=== PATIENT | male | born 1995 ===

== ENCOUNTER 2021-01-13 23:04 | Emergency (ER) | payer BC, SELFPAY ==
--- OUTSIDE RECORDS SUMMARY | 2021-01-13 23:07 | XMS REPORT | Continuity of Care Document ---
:1995 Author Organization [facility] t Address [address] [place] [address] Care Team Providers Name Role Phone Pcp, Patient Does Not Have A Primary Care Physician +[id number] Warren THOMASP Attending Clinician Doctor Unassigned, Name Attending Clinician Unavailable Payers Payer Name Policy Type Policy Number Effective Date Expiration Date S ource Problems Condition Condition Condition Status Onset Resolution Last Treating Co mments Source Name Details Category Date Date Treatment Clinician Date No known No known Disease Unive rs active active ity of problems problems [facility] Allergies, Adverse Reactions, Alerts This patient has no known allergies or adverse reactions. Social History Social Habit Start Date Stop Date Quantity Comments Source Tobacco use and 2021-01-12 2021-01-12 Never used Universit y of exposure 00:00:00 00:00:00 [facility] Alcohol intake 2021-01-12 2021-01-12 Lifetime University of 00:00:00 00:00:00 non-drinker [facility] (finding) Branch Sex Assigned At [birth year] Universit [facility] of 00:00:00 00:00:00 [facility] Smoking Status Start Date Stop Date Source Unknown [facility] [place] Never smoker [facility] Medications Ordered Filled Start Stop Current Ordering Indication Dosage Frequency Signature Comments Components Source Medication Medication Date Date Medication? Clinician (SIG) Name Name ibuprofen 2020- Yes [id number] 600mg Take 1 Univers 600 mg 01-12 tablet by ity of tablet 00:00: 04:59 mouth 3 [place] 00 :00 (three) Medical times [place] daily with meals for 10 days. Immunizations Ordered Filled Immunization Date Status Comments Sour e Immunization Name Name SARS-COV-2 COVID-19 2020-06-17 Completed Unive rsity of MODERNA VACCINE 00:00:00 [facility] SARS-COV-2 COVID-19 2020-06-17 Completed Unive rsity of MODERNA VACCINE 00:00:00 [facility] SARS-COV-2 COVID-19 2020-05-18 Completed Unive rsity of MODERNA VACCINE 00:00:00 [facility] SARS-COV-2 COVID-19 2020-05-18 Completed Unive rsity of MODERNA VACCINE 00:00:00 [facility] Vital Signs Vital Name Observation Time Observation Value Comments Source Systolic blood 2021-01-12 21:37:00 129 mm[Hg] Univer sity of pressure [facility] Diastolic blood 2021-01-12 21:37:00 71 mm[Hg] Unive rsity of pressure [facility] Heart rate 2021-01-12 21:37:00 65 /min General acute hospital Body temperature 2021-01-12 21:37:00 37.28 Lexy [facility] Respiratory rate 2021-01-12 21:37:00 16 /min [facility] Body weight 2021-01-12 21:37:00 102.604 kg General acute hospital Procedures Procedure Date / Time Performing Clinician Source Performed NO SHOW OR MISSED 2021-01-12 21:24:02 Doctor Unassigned, [facility] APPOINTMENT POLICY [facility] ACKNOWLEDGEMENT POCT URINALYSIS 2021-01-12 00:00:00 Blaire Kelley o f [facility] Encounters Start End Encounter Admission Attending Care Care Encounter Source Date/Time Date/Time Type Type Clinicians Facility Department ID 2021-01-12 2021-01-12 Student Melba Kelley [id number] [facility] 16:24:57 16:32:54 Health Mini Student [id number] it y of Scheduled [id number] [id number] [place] [address] Branch 2021-01-12 2021-01-12 Orders Doctor MEKA [id number] 00:00:00 00:00:00 Only Unassigned, SCOTT [id number] ity of [place] [facility] [id number] Johnie as [id number] [address] Results Test Description Test Time Test Comments Results Result Comments Source POCT URINALYSIS W SPECIFIC GRAVITY 2021-01-12 21:55:00 Test Item Value Reference Range Interpretation Comme nts POCT U SP GRAV (test code = 3255) >1.030 1.005-1.025 A POCT PH U (test code = 3254) 5.5 mg/dl 5-8 POCT U LEUK EST (test code = 3263) Negative Negative - Negative POCT U NIT (test code = 3262) Negative Negative - Negative POCT U PROT (test code = 3259) Trace Negative - Negative A POCT U GLU (test code = 3256) Negative Negative - Negative POCT U KETONE (test code = 3258) Negative Negative - Negative POCT U UROBILI (test code = 3260) 0.2 mg/dl 0.2-1 POCT U BILI (test code = 3261) Negative Negative - Negative POCT U BLD (test code = 3257) Large Negative - Negative A POCT U COLOR (test code = 3266) POCT U APPEAR (test code = 3267) Lab Interpretation (test code = 25295-5) Abnormal [facility]
[2021-01-14] MEDS ORDERED: MORPHINE 4 MG/ML SYR ONE (00:59)
[2021-01-14] MEDS ORDERED: ONDANSETRON 4 MG/2 ML VIAL ONE (00:59)
[2021-01-14] MEDS ORDERED: CEFTRIAXONE 1000 MG/VIAL ONE (00:59)
[2021-01-14] MEDS ORDERED: NA CHLORIDE 0.9% 1,000 ML ONE ×2 (01:00→02:21)
[2021-01-14] MEDS ORDERED: KETOROLAC 30 MG/ML INJ ONE (01:00)
[2021-01-14 01:16] LABS: Absolute Lymphocytes (CBC) 2.4 K/uL (0.7-4.9); Basophils % 0.4 % (0-1.3); Hematocrit 41.4 % (39.6-49.0); Lymphocytes % 26.9 % (15.3-44.8); MPV 8.9 fL (7.6-11.3); RBC Red Blood Cell Count 4.81 M/uL (4.33-5.43)
[2021-01-14 01:31] LABS: Bilirubin Direct 0.1 mg/dL (0-0.2); Bilirubin Total 0.5 mg/dL (0.2-1.0); Potassium 3.9 mmol/L (3.5-5.1); Protein, Total 7.2 g/dL (6.4-8.2)
--- NOTE | 2021-01-14 01:44 | EDPHYS ---
Physician Documentation [facility] Name: Cornel Salomon Age: 25 yrs Sex: Male : 1995 Arrival Date: 01/13/2021 Time: 23:20 Bed 25 Private MD: MINI Physician Mateo Tyler HPI: 01/14 00:11 This 25 yrs old Male presents to ER via Ambulatory with complaints of right wood flank pain. 00:11 The patient complains of pain in the right mid back and right low back. The pain wood radiates to the right mid back and right low back. Onset: The symptoms/episode began/occurred 2 day(s) ago. Modifying factors: The symptoms are alleviated by nothing. the symptoms are aggravated by nothing. The patient presents with pain that is acute, with no known mechanism of injury. The symptoms are located in the right mid back and right low back. Onset: The symptoms/episode began/occurred 2 day(s) ago. Associated signs and symptoms: The patient has no apparent associated signs or symptoms. Modifying factors: The patient symptoms are alleviated by nothing, the patient symptoms are aggravated by nothing. Historical: - Allergies: 01/13 23:24 No Known Allergies; em - PMHx: 23:24 None; em - PSHx: 23:24 None; em - Immunization history:: Adult Immunizations up to date, Client reports receiving the 2nd dose of the Covid vaccine. - Social history:: Smoking status: Patient denies any tobacco usage or history of. - Family history:: not pertinent. ROS: 01/14 00:11 Constitutional: Negative for fever, chills, and weight loss, Eyes: Negative for injury, wood pain, redness, and discharge, ENT: Negative for injury, pain, and discharge, Neck: Negative for injury, pain, and swelling, Cardiovascular: Negative for chest pain, palpitations, and edema, Respiratory: Negative for shortness of breath, cough, wheezing, and pleuritic chest pain, : Negative for injury, bleeding, discharge, and swelling, MS/Extremity: Negative for injury and deformity, Skin: Negative for injury, rash, and discoloration, Neuro: Negative for headache, weakness, numbness, tingling, and seizure, Psych: Negative for depression, anxiety, suicide ideation, homicidal ideation, and hallucinations, Allergy/Immunology: Negative for hives, rash, and allergies, Endocrine: Negative for neck swelling, polydipsia, polyuria, polyphagia, and marked weight changes, Hematologic/Lymphatic: Negative for swollen nodes, abnormal bleeding, and unusual bruising. Abdomen/GI: Positive for abdominal pain, of the anterior aspect of left lateral abdomen and posterior aspect of left lateral abdomen. Back: Positive for flank pain, on the right. Exam: 00:15 Constitutional: This is a well developed, well nourished patient who is awake, alert, wood and in no acute distress. Head/Face: Normocephalic, atraumatic. Eyes: Pupils equal round and reactive to light, extra-ocular motions intact. Lids and lashes normal. Conjunctiva and sclera are non-icteric and not injected. Cornea within normal limits. Periorbital areas with no swelling, redness, or edema. ENT: Nares patent. No nasal discharge, no septal abnormalities noted. Tympanic membranes are normal and external auditory canals are clear. Oropharynx with no redness, swelling, or masses, exudates, or evidence of obstruction, uvula midline. Mucous membranes moist. Neck: Trachea midline, no thyromegaly or masses palpated, and no cervical lymphadenopathy. Supple, full range of motion without nuchal rigidity, or vertebral point tenderness. No Meningismus. Chest/axilla: Normal chest wall appearance and motion. Nontender with no deformity. No lesions are appreciated. Cardiovascular: Regular rate and rhythm with a normal S1 and S2. No gallops, murmurs, or rubs. Normal PMI, no JVD. No pulse deficits. Respiratory: Lungs have equal breath sounds bilaterally, clear to auscultation and percussion. No rales, rhonchi or wheezes noted. No increased work of breathing, no retractions or nasal flaring. Male : Normal genitalia with no discharge or lesions. Skin: Warm, dry with normal turgor. Normal color with no rashes, no lesions, and no evidence of cellulitis. MS/ Extremity: Pulses equal, no cyanosis. Neurovascular intact. Full, normal range of motion. Neuro: Awake and alert, GCS 15, oriented to person, place, time, and situation. Cranial nerves II-XII grossly intact. Motor strength 5/5 in all extremities. Sensory grossly intact. Cerebellar exam normal. Normal gait. Psych: Awake, alert, with orientation to person, place and time. Behavior, mood, and affect are within normal limits. 00:15 Abdomen/GI: Inspection: abdomen appears normal, Bowel sounds: normal, Palpation: moderate abdominal tenderness, in the anterior aspect of left lateral abdomen and posterior aspect of left lateral abdomen, Liver: no appreciated palpable abnormalities, Hernia: not appreciated. Vital Signs: 01/13 23:21 BP 142 / 81; Pulse 104; Resp 18; Temp 97.8; Pulse Ox 99% on R/A; Weight 102.51 kg; em Height 6 ft. 0 in. (182.88 cm); 01/14 01:07 BP 136 / 74; Pulse 84; Resp 20; Temp 98.8; Pulse Ox 98% ; wr 03:30 BP 135 / 84; Pulse 86; Resp 20; Temp 97.5(T); bb 01/13 23:21 Body Mass Index 30.65 (102.51 kg, 182.88 cm) em MDM: 00:05 Patient medically screened. [facility] 00:16 Differential diagnosis: nephrolithiasis, pyelonephritis, UTI, Ureterolithiasis. Data [facility] reviewed: vital signs, nurses notes, lab test result(s), radiologic studies, CT scan. Data interpreted: potline monitor: rate is 104 beats/min, rhythm is regular, Pulse oximetry: on room air is 99 %. Test interpretation: by ED physician or midlevel provider:. Counseling: I had a detailed discussion with the patient and/or guardian regarding: the historical points, exam findings, and any diagnostic results supporting the discharge/admit diagnosis, lab results, radiology results, the need for outpatient follow up, for definitive care, a family practitioner, a urologist. 01/14 00:10 Order name: Basic Metabolic Panel; Complete Time: : wood 01/14 00:10 Order name: CBC with Diff; Complete Time: : wood 01/14 00:10 Order name: Hepatic Function; Complete Time: : wood 01/14 00:10 Order name: Lipase; Complete Time: : wood 01/14 00:11 Order name: Urine Culture [facility] 01/14 03:14 Order name: Urine Dipstick-Ancillary EDMS 01/13 23:25 Order name: Stone Protocol CT em 01/14 00:10 Order name: IV Saline Lock; Complete Time: :15 [facility] 01/14 00:10 Order name: Labs collected and sent; Complete Time: :15 [facility] 01/14 00:11 Order name: Urine Dipstick-Ancillary (obtain specimen); Complete Time: 03:55 [facility] Administered Medications: 00:20 Drug: morphine 4 mg Route: IVP; Site: right upper arm; wr 03:30 Follow up: BP 135 / 84; Pulse 86 bpm; Resp 20 bpm; Temp 97.5 Tympanic bb 00:21 Drug: Ketorolac 30 mg Route: IVP; Site: right upper arm; wr 00:22 Drug: NS 0.9% 1000 ml Route: IV; Rate: 1 bolus; Site: right forearm; wr 00:22 Drug: Zofran (Ondansetron) 4 mg Route: IVP; Site: left forearm; wr 00:25 Drug: Rocephin (cefTRIAXone) 1 grams Route: IV; Rate: per protocol; Site: right upper wr arm; 02:03 Drug: NS 0.9% 1000 ml Route: IV; Rate: 1 bolus; Site: right forearm; wr 02:05 Drug: Flomax (tamsulosin) 0.4 mg Route: PO; wr Disposition Summary: 01/14/21 01:43 Discharge Ordered Location: Home [facility] Problem: new wood Symptoms: have improved wood Condition: Stable wood Diagnosis - Hydronephrosis with renal and ureteral calculous obstruction - 3 mm distal right wood Followup: wood - With: Private Physician - When: 2 - 3 days - Reason: Recheck today's complaints, Continuance of care, Re-evaluation by your physician Followup: wood - With: - When: 2 - 3 days - Reason: Recheck today's complaints, Re-evaluation by your physician Discharge Instructions: - Discharge Summary Sheet wood - Kidney Stones wood - Kidney Stones, [id number] wood - Hydronephrosis wood - Dietary Guidelines to Help Prevent Kidney Stones wood Forms: - Medication Reconciliation Form wood - Thank You Letter wood - Antibiotic Education wood - Prescription Opioid Use [facility] Prescriptions: - tamsulosin 0.4 mg Oral capsule - take 1 capsule by ORAL route once daily 1/2 hour following the same meal each wood day; 30 capsule; Refills: 0, Product Selection Permitted - Zofran 4 mg Oral Tablet - take 1 tablet by ORAL route every 12 hours As needed; 20 tablet; Refills: 0, [facility] Product Selection Permitted - Cipro 500 mg Oral Tablet - take 1 tablet by ORAL route every 12 hours for 7 days; 14 tablet; Refills: 0, [facility] Product Selection Permitted - Tylenol-Codeine #3 300 mg-30 mg Oral - take 2 tablet by ORAL route every 4-6 hours; 26 tablet; Refills: 0, Product [facility] Selection Permitted Signatures: Dispatcher [employer] Mateo Mcconnell MD MD cha Munoz, Edgar, RN RN Guillermo Gold Brenda RN bb
--- NOTE | 2021-01-14 01:44 | ER ---
Nurse's Notes [facility] Name: Cornel Salomon Age: 25 yrs Sex: Male : 1995 Arrival Date: 01/13/2021 Time: 23:20 Bed 25 Private MD: Diagnosis: Hydronephrosis with renal and ureteral calculous obstruction-3 mm distal right Presentation: 01/13 23:21 Chief complaint: Patient states: right flank pain since yesterday, denies N/V fever, em was seen at [facility] and did a UA that showed blood and protein, did not do a CT. Coronavirus screen: Vaccine status: Patient reports being unvaccinated. Ebola Screen: Patient negative for fever greater than or equal to 101.5 degrees Fahrenheit, and additional compatible Ebola Virus Disease symptoms Patient denies exposure to infectious person. Patient denies travel to an Ebola-affected area in the 21 days before illness onset. No symptoms or risks identified at this time. Initial Sepsis Screen: Does the patient meet any 2 criteria? HR > 90 bpm. No. Patient's initial sepsis screen is negative. Does the patient have a suspected source of infection? No. Patient's initial sepsis screen is negative. Risk Assessment: Do you want to hurt yourself or someone else? Patient reports no desire to harm self or others. Onset of symptoms was January 13, 2021. 23:21 Method Of Arrival: Ambulatory em 23:21 Acuity: BEN 3 em Triage Assessment: 01/14 01:05 General: Appears uncomfortable, well developed, well nourished. wr 01:06 Pain: Complains of pain in back and abdomen Pain at worst was 0600 out of 10 on a pain wr scale. 03:56 General: Behavior is cooperative, crying. bb Historical: - Allergies: 01/13 23:24 No Known Allergies; em - PMHx: 23:24 None; em - PSHx: 23:24 None; em - Immunization history:: Adult Immunizations up to date, Client reports receiving the 2nd dose of the Covid vaccine. - Social history:: Smoking status: Patient denies any tobacco usage or history of. - Family history:: not pertinent. Screenin/10 01:21 Abuse screen: None. wr 01:22 Nutritional screening: No deficits noted. wr 01:22 Tuberculosis screening: No symptoms or risk factors identified. wr 01:23 Fall Risk None identified. wr Assessment: 01:17 Reassessment:. wr 01:18 General: Appears uncomfortable. wr 01:19 Pain: Quality of pain is described as dull. wr Vital Signs: 01/13 23:21 BP 142 / 81; Pulse 104; Resp 18; Temp 97.8; Pulse Ox 99% on R/A; Weight 102.51 kg; em Height 6 ft. 0 in. (182.88 cm); 01/14 01:07 BP 136 / 74; Pulse 84; Resp 20; Temp 98.8; Pulse Ox 98% ; wr 03:30 BP 135 / 84; Pulse 86; Resp 20; Temp 97.5(T); bb 01/13 23:21 Body Mass Index 30.65 (102.51 kg, 182.88 cm) em ED Course: 01/13 23:20 Patient arrived in ED. em 23:24 Triage completed. em 23:24 Arm band placed on. em 01/14 00:05 Mateo Tyler MD is Attending Physician. wood 00:05 Tunde Cowan PA is PHCP[facility] 00:22 Anca Canchola RN is Primary Nurse. bb 01:[address] In Process Unspecified. EDMS 01:21 Inserted saline lock:. wr 01:23 No provider procedures requiring assistance completed. wr 01:42 Hammad Tuttle MD is Referral Physician. wood 03:54 Urine Culture Sent. bb 03:57 Patient has correct armband on for positive identification. Call light in reach. Side bb rails up X2. Adult w/ patient. Pulse ox on. NIBP on. 04:00 IV discontinued, intact, bleeding controlled. bb Administered Medications: 00:20 Drug: morphine 4 mg Route: IVP; Site: right upper arm; wr 03:30 Follow up: BP 135 / 84; Pulse 86 bpm; Resp 20 bpm; Temp 97.5 Tympanic bb 00:21 Drug: Ketorolac 30 mg Route: IVP; Site: right upper arm; wr 00:22 Drug: NS 0.9% 1000 ml Route: IV; Rate: 1 bolus; Site: right forearm; wr 00:22 Drug: Zofran (Ondansetron) 4 mg Route: IVP; Site: left forearm; wr 00:25 Drug: Rocephin (cefTRIAXone) 1 grams Route: IV; Rate: per protocol; Site: right upper wr arm; 02:03 Drug: NS 0.9% 1000 ml Route: IV; Rate: 1 bolus; Site: right forearm; wr 02:05 Drug: Flomax (tamsulosin) 0.4 mg Route: PO; wr Outcome: 01:43 Discharge ordered by . wood 03:57 Condition: stable bb 03:59 Condition: improved bb 03:59 Discharge instructions given to patient, Instructed on discharge instructions, follow up and referral plans. no drinking with medication, medication usage, Demonstrated understanding of Prescriptions given X 4. 04:01 Discharged to home with family. bb 04:04 Patient left the ED. bb Signatures: Dispatcher [employer] Mateo Mcconnell MD MD cha Mickail, Joel, PA PA jmm Munoz, Edgar, RN RN em Ballard, Brenda, RN RN bb Robinson, Willena wr
[2021-01-14] MEDS ORDERED: TAMSULOSIN 0.4 MG SR CAP ONE (02:28)
[2021-01-14 03:14] LABS: Urine Blood 2+ (Negative); Urine Glucose Negative (Negative); Urine Protein Negative (Negative); Urine Specific Gravity 1.025 (1.005-1.030); Urine pH 6.5 (5.0-7.0)
[2021-01-14 04:10] VITALS: O2SAT 98
[2021-01-14 04:12] VITALS: BP 135/84; TEMP 97.5
--- NOTE | 2021-01-14 14:19 | RAD REPORT ---
EXAM DESCRIPTION: CT - Stone Protocol - 01/14/2021 4:[address] Abdomen and Pelvis Without Intravenous Contrast CLINICAL HISTORY: Right flank pain TECHNIQUE: Axial computed tomography images of the abdomen and pelvis without intravenous contrast. Sagittal and coronal reformatted images were created and reviewed. This CT exam was performed usi ng one or more of the following dose reduction techniques: automated exposure control, adjustment o f the mA and/or kV according to patient size, and/or use of iterative reconstruction technique. COMPARISON: No relevant prior studies available. FINDINGS: Lung bases: Unremarkable. No mass. No consolidation. ABDOMEN: Liver: Unremarkable. Gallbladder and bile ducts: Unremarkable. No calcified stones. No ductal dilation. Pancreas: Unremarkable. No ductal dilation. Spleen: Unremarkable. No splenomegaly. Adrenals: Unremarkable. No mass. Kidneys and ureters: Mild right hydroureteronephrosis with perinephric and periureteral stranding. 3 mm distal right ureteral calculus (series 201 image 125, series 202 image 56 and series 203 image 6 4). Punctate calculus within the lower pole collecting system on the left. Stomach and bowel: Unremarkable. No obstruction. No mucosal thickening. PELVIS: Appendix: Normal caliber appendix. No findings to suggest acute appendicitis. Bladder: The urinary bladder is decompressed. No stones. Reproductive: Unremarkable as visualized. ABDOMEN and PELVIS: Intraperitoneal space: Unremarkable. No free air. No significant fluid collection. Bones/joints: No acute fracture. No dislocation. Soft tissues: Tiny fat-containing umbilical hernia. Vasculature: Unremarkable. No abdominal aortic aneurysm. Lymph nodes: Unremarkable. No enlarged lymph nodes. IMPRESSION: Mildly obstructing 3 mm distal right ureteral calculus. Electronically signed by: Beulah Gordon MD 01/14/2021 1:32 AM CDT Due to temporary technical issues with the PACS/Fluency reporting system, reports are being signed by the in house radiologists without review as a courtesy to insure prompt reporting. The interpreting radiologist is fully responsible for the content of the report.
== END 2021-01-14 04:04 | disposition home or self-care (01) ==
LOC: ER 23:04
DX: N13.2 Hydronephrosis with renal and ureteral calculous obstruction (principal)
CPT/HCPCS: 85025; 87086; 80048; 36415; 80076; 81003; 83690; 76377; 74176; 99284; J7030 ×2; J2405; 87088